=== PATIENT | male | born 1995 | race Two or more races ===

== ENCOUNTER 2021-11-26 14:55 | Emergency (ER) | payer MEDICAID ==
[~2021-11-26] VITALS: Ht 167.6 cm; Wt 63.5 kg
[2021-11-26 15:15] VITALS: BP 110/67
== END 2021-11-27 05:42 | disposition home or self-care (01) ==
LOC: EDBD 14:55 → ER 14:55
DX: S01.01XA Laceration without foreign body of scalp, initial encounter (principal); S09.90XA Unspecified injury of head, initial encounter; F17.210 Nicotine dependence, cigarettes, uncomplicated; F12.10 Cannabis abuse, uncomplicated; F15.10 Other stimulant abuse, uncomplicated; Y04.8XXA Assault by other bodily force, initial encounter; Y93.89 Activity, other specified; Y92.89 Other specified places as the place of occurrence of the external cause; Y99.8 Other external cause status
CPT/HCPCS: 12002; 70450; 72125